=== PATIENT | male | born 1965 | race Caucasian/White ===

== ENCOUNTER 2020-07-03 12:16 | Emergency (ER) | payer BC, SELFPAY ==
[2020-07-03 12:25] VITALS: BP 164/87; PULSE 90; RESP 15; TEMP 36.5; O2SAT 98; BMI 29.9
--- NOTE | 2020-07-03 12:41 | XR_ITS ---
WS: [id number] Left ankle, 3 views, 07/03/2020 Clinical Data: trauma Comparison: None. Findings: No fractures or dislocations are seen. The ankle mortise is normal. The talus and calcaneus are unrem arkable. There is soft tissue swelling over the medial or lateral malleolus. Is a plantar spur. XR/XR ankle LT min 3V* [id number] Impression: Negative for fracture of the left ankle.
--- NOTE | 2020-07-03 12:42 | W.ED.LOWEXIN ---
HPI - Extremity Injury (Lower) General: Chief Complaint: Extremity Injury, Lower Stated Complaint: FALL-left ankle injury Time Seen by Provider: 07/03/20 12:35 Source: patient Mode of arrival: wheelchair Limitations: no limitations History of Present Illness: HPI Narrative: Patient is a 54-year-old male who presents to ED today for evaluation of a left ankle injury that he sustained after falling from a ladder. Patient states he did not fall to the ground and has no other complaints other than his left ankle pain. Patient tells me he was still able to ambulate on the ankle afterwards but heard a lot of crunching and popping . complaint: ankle injury Onset (ago): hour(s) Relieving factors: immobilization Exacerbating factors: weight bearing, movement and palpation Other symptoms: none Review of Systems Card: Denies: chest pain Resp: Denies: dyspnea Musc: Reports: joint pain (L ankle) and joint swelling (L ankle); Denies: neck pain, back pain, extremity pain or extremity swelling Neuro: Denies: headache(s), lack of coordination, difficulty walking, frequent falls or dizziness Physical Exam Const: COMMON NORMALS: no acute distress, average body habitus, patient oriented x3, no limitations, healthy appearing, alert and well nourished HENMT: COMMON NORMALS: normocephalic and atraumatic HEAD & SCALP: normocephalic and atraumatic Chest: COMMONS NORMALS: normal inspection of the chest and normal palpation of entire chest wall Back/Pelvis: COMMON NORMALS: thoracic and lumbar spine normal to inspection, no thoracic nor lumbar tenderness and thoraco-lumbar ROM normal Extremity: GENERAL: Yes normal exam except as noted OTHER: TTP and swelling noted to medial and lateral malleoli of L ankle; pt maintains fairly good ROM and doesn't report much pain at the moment; DP/PT pulses intact Neuro: COMMON NORMALS: patient oriented x3, no focal motor deficits and no sensory deficits noted SENSORIUM/ORIENTATION: Yes alert Skin: NARRATIVE SKIN EXAM: no ecchymosis, lacerations, or abrasions noted Course Vital Signs: Vital signs: Vital Signs Temperature 97.7 F 07/03/20 12:25 Pulse Rate 69 07/03/20 12:58 Respiratory Rate 20 H 07/03/20 12:56 Blood Pressure 138/80 07/03/20 12:56 Pulse Oximetry 96 07/03/20 12:56 MDM - Extremity Injury (Lower) Imaging Data^: L ankle XR: Radiologist's impression: [facility] [place] [address] XRay Report Signed Patient: Jorge L Liu Unit #: [id number] : 1965 Age/Sex: 54 / M ADM Date: 07/03/20 Loc: ER Room/Bed: Attending Dr: Ordering Provider/Ordering MD: Amee Fu Date of Service: 07/03/20 Procedure(s): XR ankle LT min 3V* [id number] Accession Number(s): [id number] Report Number: [id number] WS: [id number] Left ankle, 3 views, 07/03/2020 Clinical Data: trauma Comparison: None. Findings: No fractures or dislocations are seen. The ankle mortise is normal. The talus and calcaneus are unremarkable. There is soft tissue swelling over the medial or lateral malleolus. Is a plantar spur. XR/XR ankle LT min 3V* [id number] Impression: Negative for fracture of the left ankle. Dictated By: Dorothy Ny MD Signed By: Dorothy Ny MD Signed Date/Time: 07/03/20 1256 DD/ 1255 Discharge Plan Discharge Patient Disposition: Home Clinical Impression: Ankle sprain and strain Condition: Stable Discharge Orders: Discharge ED (Routine); Ordered 07/03/20 Ordered By: Amee Fu Patient Instructions: Ankle Sprain (ED), Ankle Stirrup Splint (ED), RICE Therapy (ED), Sprains - Ankle Activity Restrictions/Additional Instructions: As discussed ice and elevate the ankle as much as possible (refer to RICE handout). If you continue having severe pain past a week please contact your primary care provider for further evaluation and possible repeat imaging. 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
[2020-07-03 12:56] VITALS: BP 138/80; PULSE 79; RESP 20; O2SAT 96
[2020-07-03 12:58] VITALS: PULSE 69
[2020-07-03 13:30] VITALS: BP 101/83; PULSE 76; RESP 18; TEMP 37.2; O2SAT 96
== END 2020-07-03 13:48 | disposition home or self-care (01) ==
PROVIDERS: Emergency Provider Physician Assistant; PCP Nurse Practitioner Family
DX: S93.402A Sprain of unspecified ligament of left ankle, initial encounter (principal); S96.912A Strain of unspecified muscle and tendon at ankle and foot level, left foot, initial encounter; W11.XXXA Fall on and from ladder, initial encounter
CPT/HCPCS: 12345; 29105; 73610; 99281; 99283

== ENCOUNTER 2020-12-03 12:05 | Emergency (ER) | payer BC, SELFPAY ==
[2020-12-03 12:28] VITALS: BP 146/93; PULSE 87; RESP 16; TEMP 36.4; O2SAT 95; BMI 29.9
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
[2020-12-03 12:51] VITALS: BP 135/99; PULSE 78; RESP 16; O2SAT 98
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
[2020-12-03 13:37] VITALS: BP 133/101; PULSE 77; RESP 14; O2SAT 97
== END 2020-12-03 13:46 | disposition home or self-care (01) ==
PROVIDERS: Emergency Provider Physician Assistant; PCP Family Medicine
DX: S60.222A Contusion of left hand, initial encounter (principal); S80.12XA Contusion of left lower leg, initial encounter; V29.9XXA Motorcycle rider (driver) (passenger) injured in unspecified traffic accident, initial encounter
CPT/HCPCS: 73130; 73610; 99282

== ENCOUNTER 2021-01-15 15:45 | Outpatient (CLI) | payer SELFPAY ==
--- NOTE | 2021-01-15 15:57 | XR_ITS ---
WS: [id number] Right shoulder, 3 views, 01/15/2021 Clinical Data: SHOULDER PAIN, RIGHT Comparison: None. Findings: No fractures or dislocations are seen. The AC joint is normal. The adjacent right clavicle, right sca pula and ribs are normal. The soft tissues are unremarkable. XR/XR shoulder RT min 2V* [id number] Impression: Negative right shoulder.
== END 2021-01-15 15:46 | disposition home or self-care (01) ==
LOC: RAD 15:50
PROVIDERS: PCP Family Medicine; Visit Provider Family Medicine
DX: M25.511 Pain in right shoulder (principal)
CPT/HCPCS: 73030

== ENCOUNTER 2021-07-24 16:17 | Outpatient (CLI) | payer BC, SELFPAY ==
--- NOTE | 2021-07-24 16:48 | MR_ITS ---
WS: [id number] MRI RIGHT SHOULDER NONCONTRAST TECHNIQUE: Sagittal T2, coronal T1, T2 and proton density imaging. Axial gradient PDE imaging. CLINICAL INFORMATION: S46.911A - Strain of unspecified muscle, fascia and tendo... COMPARISON: None. FINDINGS: Advanced degenerative arthritis AC joint with moderate downsloping acromion. Slight subacromial spurr ing. Small subacromial/subdeltoid effusion. High-grade complete tear involving the supraspinatus with retraction to the level of the AC joint. Chronic thinning of the infraspinatus with partial-thicknes s high-grade tear. Small amount of tendon is intact dorsally. Chronic thinning of the subscapularis tendon with tendinopathy. Diminutive atrophic biceps tendon rem nant in the bicipital groove. This is likely chronically torn. Small joint effusion. Partial-thicknes s tear of the intra-articular biceps tendon with a small amount of associated fluid. Disruption of th e biceps labral anchor. Degenerative fraying of the glenoid labrum. Degenerative arthritis involving the glenohumeral joint. MR/MR shoulder RT wo con* [id number] IMPRESSION: 1. High-grade complete tear of the supraspinatus with retraction of the level of the AC joint. 2. High-grade partial-thickness tear of the infraspinatus with intact fibers d orsally. 3. Tendinopathy with chronic thinning of the subscapularis. 4. Partial thickness tear of the intra-articular biceps tendon with disruption of the biceps labral anchor which is not well visualized. 5. Tiny intra-articular biceps remnant within the bicipital groove likely due to chronic tear. 6. Small joint effusion. 7. Moderate to advanced degenerative arthritis AC joint with narrowing of the subacromial space.
== END 2021-07-24 16:18 | disposition home or self-care (01) ==
PROVIDERS: PCP Family Medicine; Visit Provider Orthopaedic Surgery
DX: S46.911A Strain of unspecified muscle, fascia and tendon at shoulder and upper arm level, right arm, initial encounter (principal); M75.121 Complete rotator cuff tear or rupture of right shoulder, not specified as traumatic; S46.211A Strain of muscle, fascia and tendon of other parts of biceps, right arm, initial encounter; X58.XXXA Exposure to other specified factors, initial encounter; M25.411 Effusion, right shoulder; M19.011 Primary osteoarthritis, right shoulder
CPT/HCPCS: 73221

== ENCOUNTER → 2021-08-22 00:01 | Outpatient (BNVA) | payer BC, SELFPAY | PROVIDERS: PCP Family Medicine; Visit Provider Orthopaedic Surgery | DX: Z20.822 Contact with and (suspected) exposure to COVID-19 (principal); Z01.812 Encounter for preprocedural laboratory examination | CPT/HCPCS: 87635 ==

== ENCOUNTER 2021-08-28 08:24 | Day surgery (SDC) | payer BC, SELFPAY ==
[2021-08-27 10:30] VITALS: BMI 29.9
[2021-08-28] VITALS (13 sets, daily range): BP systolic 103–142; BP diastolic 50–86; PULSE 64–129; RESP 14–18; TEMP 36.4–36.7; O2SAT 93–99
--- NOTE | 2021-08-28 08:38 | P.HPUD_ITS ---
Surgery/Procedure H&P Update DATE OF PROCEDURE: August 28, 2021 DATE H&P PERFORMED: 08/12/21 H&P UPDATE INFORMATION: I have reviewed H&P completed within last 30 days PREOP DIAGNOSIS: Rotator cuff tear/biceps tendon tear right shoulder PLANNED PROCEDURE: Operation Date: 08/28/21 10:25 Proposed Procedures p arthroscopic rotator cuff repair 45116/right rotator cuff repair M75.10 1(Right) - Davie Jackson MD s Shoulder Arthroscopy(Right) - Davie Jackson MD
[2021-08-28] MEDS: acetaminophen 500 mg Tablet 1000 MG PO (08:54)
[2021-08-28] MEDS: sodium chloride 0.9% 1,000 ML 30 ML IV (08:56)
[2021-08-28] MEDS: HYDROmorphone 1 mg/mL INJ 1 mL 0.5 MG IVP (09:10)
--- NOTE | 2021-08-28 09:12 | SUR.PREOP ---
Anesthesia performing block in room. Dilaudid given pre-procedure. Time out completed at bedside, block performed using ultrasound. Patient tolerated well.
--- NOTE | 2021-08-28 09:35 | ANES.PREANE2 ---
Pre-Anesthetic Assessment Height/Weight: Height 1.65 m Weight 81.647 kg Temp Pulse Resp BP Pulse Ox 98.1 F 75 17 139/85 96 08/28/21 08:34 08/28/21 08:34 08/28/21 09:10 08/28/21 08:34 08/28/21 09:10 Preop Diagnosis: Rotator cuff tear/biceps tendon tear right shoulder Operation Date: 08/28/21 10:25 Proposed Procedures p arthroscopic rotator cuff repair 70548/right rotator cuff repair M75.101(Right) - Davie Jackson MD s Shoulder Arthroscopy(Right) - Davie Jackson MD Familial anesthetic complications: None Was Beta Geoff taken within 24 hours: N/A Was Clonidine taken within 24 hours: N/A Last intake: Intake Last Liquid Date 08/27/21 Last Liquid Time 20:00 Last Solid Date 08/27/21 Last Solid Time 20:00 Social Tobacco (Chews) and No alcohol Exam alert, oriented x 3, clear to auscultation bilaterally and regular rate & rhythm Airway Submandibular: within normal limits Cervical ROM: within normal limits Mallampati: Class II Dentition: chipped and loose Comments: Comments: upper and lower teeth are loose Pulmonary Chronic Obstructive Pulmonary Disease Neuropsych Depression Anesthetic Plan ASA status: 2 Anesthesia: General and Regional (specify below) (right interscalene blk) Risk of > 500 ml blood loss (7ml/kg in children): No Medications/Allergies Home Medications Medication Instructions Recorded Confirmed Last Taken Type Aspir-81 81 mg PO DAILY 08/27/21 08/27/21 08/27/21 07:00 History paroxetine HCl 20 mg tablet 20 mg PO DAILY 08/27/21 08/27/21 08/27/21 07:00 History Allergies Allergy/AdvReac Type Severity Reaction Status Date / Time Penicillins Allergy ALGY-Hives Verified 08/28/21 08:35 Current Medications Generic Name Dose Route Start Last Admin Trade Name Freq PRN Reason Stop Dose Admin Hydromorphone HCl 0.5 mg 08/28/21 07:16 08/28/21 09:10 Hydromorphone 1 Mg/Ml Inj 1 Ml IVP 08/29/21 07:16 0.5 mg Q10M PRN Administration Pain level 7-10 PACU Phase I Sodium Chloride 1,000 mls @ 30 mls/hr 08/28/21 08:30 08/28/21 08:56 Sodium Chloride 0.9% IV 08/29/21 08:29 30 mls/hr .Q24H LATOYA Administration PFSH Anesthesia Social History Smoking and tobacco status: never smoked Data Anesthesia Cardiac Studies: No Data to Display Anesthesia Procedures Nerve Block Nerve Block 1: Main Anesthesia: general anesthesia Time Out Performed: Yes Consent: requested by attending/covering physician, from patient and risks and benefits reviewed Nerve block location: interscalene (right) Anesthesia monitors applied: pulse oximetry, EKG, BP cuff and oxygen Nerve block position: semi sitting Anesthetic Used: ropivicaine 0.5% Amount of anesthesia used (mL): 30 Ultrasound used to: recognize landmarks and visualize and ID brachial plexus Nerve Stimulator Used?: No Interscalene/Femoral BLK: 2 stimuplex 22 g needle used for position and inplane approach Injection: neg aspiration of heme Patient Tolerated Procedure: well Complications: none
[2021-08-28] MEDS: EPINEPHrine 1 mg/mL INJ 2 MG XX (10:33)
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
[2021-08-28] MEDS: oxyCODONE 5 mg IR Tab/Cap PO (12:48)
--- NOTE | 2021-08-28 19:22 | ANE.PACU2 ---
Inpatient post-anesthesia follow up: Airway intact: Yes Vital signs: Temperature 98.0 F Pulse Rate 88 Respiratory Rate 17 Blood Pressure 136/86 Pulse Oximetry 97 Oxygen Delivery Me thod Room Air Oxygen Flow Rate 6 Fraction of Inspir ed Oxygen Hydration adequate: Yes Nausea and vomiting: No Pain level: 2 Mental status: Baseline
== END 2021-08-28 12:53 | disposition home or self-care (01) ==
PROVIDERS: PCP Family Medicine; Visit Provider Orthopaedic Surgery
PROC: (CPT 29826; principal; 2021-08-28 10:25)
PROC: (CPT 29805; 2021-08-28 10:25)
DX: M75.101 Unspecified rotator cuff tear or rupture of right shoulder, not specified as traumatic (principal); S46.111A Strain of muscle, fascia and tendon of long head of biceps, right arm, initial encounter; X58.XXXA Exposure to other specified factors, initial encounter
CPT/HCPCS: 29826; 29827; 64415; 76942; C1713; J0171; J0690; J1170; J2795; J7030

== ENCOUNTER → 2021-12-23 09:15 | Outpatient (BNVA) | payer BC, SELFPAY | PROVIDERS: PCP Family Medicine; Visit Provider Podiatrist Foot & Ankle Surgery | DX: M79.672 Pain in left foot (principal); M79.671 Pain in right foot | CPT/HCPCS: 73630 ==

== ENCOUNTER 2022-02-18 11:52 | Outpatient (CLI) | payer BC, SELFPAY | END 2022-02-18 11:53 | disposition home or self-care (01) | LOC: SPT 11:53 | PROVIDERS: PCP Family Medicine; Visit Provider Podiatrist Foot & Ankle Surgery | DX: Z46.89 Encounter for fitting and adjustment of other specified devices (principal); M72.2 Plantar fascial fibromatosis | CPT/HCPCS: 97760; L3030 ==

== ENCOUNTER 2022-03-17 10:11 | Emergency (ER) | payer BC, SELFPAY ==
[2022-03-17 10:20] VITALS: BP 129/85; PULSE 109; RESP 16; TEMP 37.2; O2SAT 95; BMI 30.4
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
--- NOTE | 2022-03-17 10:59 | ED_ITS ---
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 He reports that he was wearing a hat. There is a female present with the patient who is concerned that the patient lost consciousness because he does not recall where his hat or his hotshot are. The patient does not believe he lost consciousness, but does state that he is unsure of where his supplies are. The female that is with him states that this is very typical for him. The patient is concerned about a laceration on his right side forehead. He reports that he is not up-to-date on his tetanus vaccination. Associated symptoms: Denies chills or fever(s) Review of Systems Const: Denies: fever(s) or chills Eyes: Denies: change in vision, blurry vision or blind spots Card: Denies: chest pain or palpitations Resp: Denies: dyspnea Skin/Breast: Reports: other (Laceration right side forehead) Neuro: Reports: headache(s) [facility] ED PFSH: Social History Smoking and tobacco status: never smoked Physical Exam Const: COMMON NORMALS: no acute distress, patient oriented x3 and alert Eye: COMMON NORMALS: Equal, round and reactive pupils present, EOMs intact bilaterally and conjunctivae normal CONJUNCTIVA: Yes conjunctivae normal PUPIL: Yes Equal, round and reactive pupils present Resp: COMMON NORMALS: normal respiratory effort Cardio: COMMON NORMALS: regular rate, regular rhythm, S1 normal heart sound present and S2 normal heart sound present RATE: regular rate RHYTHM: regular rhythm HEART SOUNDS: S1 normal heart sound present, S2 normal heart sound present and no murmurs Neuro: COMMON NORMALS: patient oriented x3, CN's II-XII intact bilaterally, moves all extremities, no focal motor deficits, no sensory deficits noted and gait normal SENSORIUM/ORIENTATION: Yes alert Skin: NARRATIVE SKIN EXAM: Right side forehead there is approximately a 3.5 cm laceration. Edges are clean and well approximated. Minimal bleeding at this time. No obvious foreign bodies appreciated. Procedures Laceration Right-sided forehead: Description: linear and contaminated (Extensive irrigation with normal saline) Depth: simple, single layer Local Anesthetic: lidocaine 1% Amount of anesthesia used (mL): 3 Skin layer closed with: other (Ethilon) Size (cm): 5-0 Number of sutures: 5 Course Vital Signs: Vital signs: Vital Signs Temperature 98.9 F 03/17/22 10:20 Pulse Rate 109 H 03/17/22 10:20 Respiratory Rate 16 03/17/22 10:20 Blood Pressure 129/85 03/17/22 10:20 Pulse Oximetry 95 03/17/22 10:20 Oxygen Delivery Me thod 03/17/22 10:20 MDM - Wound/Laceration Medical Decision Making 56-year-old male in today for head injury. 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 He presents with a laceration to his right side forehead. His significant other is very concerned that he had a loss of consciousness based on his typical behavior and the way that he does not remember some of the events. Patient denies loss of consciousness. Head CT is negative. Lidocaine 1% used as local anesthetic. The wound was cleansed and extensively irrigated with normal saline. No obvious foreign bodies are appreciated. Suture repair of the laceration was done and edges approximated well. Total of 6 of the 5-0 sutures. Advised patient and his of aftercare. Since patient had wiped the wound with a soiled rag at the time of injury I will go ahead and administer prophylactic antibiotic Keflex. Patient does have a history of allergy to penicillin however we got his mother on the phone and she denies that it was a significant allergy. She reports that once when he was a baby and he developed a little bit of rash and swelling to his skin. No breathing issues. We discussed the possible cross sensitivity between penicillin and cephalosporins. We discussed that his risk is significantly reduced given that he did not have an anaphylactic type reaction. Will cover patient outpatient with Keflex. Follow-up in 5 to 7 days with primary care provider to have sutures removed. Monitor closely for signs of infection. Return to the ER for any new or worsening symptoms including neurologic changes. Lab Data Radiology Impressions Head CT 03/17/22 10:52 IMPRESSION: 1. No evidence of intracranial hemorrhage or mass effect. 2. No acute intracranial findings. Discharge Plan Discharge Patient Disposition: Home Clinical Impression: Contusion of head, Laceration of head Condition: Stable Prescriptions: New cephalexin 500 mg capsule 500 mg PO BID 7 Days Qty: 14 0RF No Action (DME) Sole Supports See Rx Instructions .Route .MEDSUPPLY Qty: 1 0RF Rx Instructions: As directed Aspir-81 81 mg PO DAILY paroxetine HCl 20 mg tablet 20 mg PO DAILY oxycodone 5 mg tablet 5 mg PO Q4H PRN (Reason: pain) Qty: 40 0RF Discharge Orders: Discharge ED (Routine); Ordered 03/17/22 Ordered By: Claudia Andrew Referrals: Jesus Alberto Faith MD [Primary Care Provider] - Discharge Diet: Usual diet Discharge Activity: Resume usual activity Activity Restrictions/Additional Instructions: Your head CT was negative for any acute abnormalities. Monitor closely for the next 24 hours for any changes in vision, increased headache, increased pain, other neurologic symptoms. Keep sutures clean and dry. Follow-up in 5 to 7 days with your primary care provider to have sutures removed. Start antibiotic Keflex today. Take as directed. There is a potential for cross sensitivity since you have an allergy to penicillin however this is significantly reduced given that you did not have an anaphylaxis reaction to penicillin. Return to the ER as needed for any new or worsening symptoms, chest pain, shortness of breath, difficulty breathing. Coding Level of Care Code ED [employer] Specialist for Lynne Ramos Exam Detailed
[2022-03-17] MEDS: tetanus-dipt-pertussis 0.5 mL SDV IM (11:10)
== END 2022-03-17 12:18 | disposition home or self-care (01) ==
PROVIDERS: Emergency Provider Nurse Practitioner Family; PCP Family Medicine
DX: S01.81XA Laceration without foreign body of other part of head, initial encounter (principal); S00.93XA Contusion of unspecified part of head, initial encounter; W55.22XA Struck by cow, initial encounter; Z23 Encounter for immunization; Z79.82 Long term (current) use of aspirin
CPT/HCPCS: 12013; 70450; 90471; 90715; 99284

== ENCOUNTER 2023-05-31 21:42 | Emergency (ER) | payer OTHER, SELFPAY ==
--- NOTE | 2023-05-31 21:43 | XRR_ITS ---
PROCEDURE INFORMATION: Exam: XR Right Ankle Exam date and time: 05/31/2023 9:56 PM Age: 57 years old Clinical indication: Injury or trauma; Other: Dropped something on RT ankle; Crushing; Right TECHNIQUE: Imaging protocol: Radiologic exam of the right ankle. Views: 3 or more views. COMPARISON: CR (LOW EXM, ) 05/31/2023 9:55 PM FINDINGS: Bones/joints: Small calcified heel spur. Degenerative calcification between the distal tibia and fibula appears chronic. Soft tissues: Normal. XR/XR ankle RT min 3V* [id number] IMPRESSION: 1. Small calcified heel spur. 2. Degenerative calcification between the distal tibia and fibula appears chronic.
--- NOTE | 2023-05-31 21:43 | XRR_ITS ---
PROCEDURE INFORMATION: Exam: XR Right Foot Exam date and time: 05/31/2023 9:55 PM Age: 57 years old Clinical indication: Injury or trauma; Other: Dropped something on RT foot; Crushing; Right TECHNIQUE: Imaging protocol: Radiologic exam of the right foot. Views: 3 or more views. COMPARISON: No relevant prior studies available. FINDINGS: Bones/joints: Small calcified heel spur. Hallux valgus with a metatarsophalangeal joint angle of 23 degrees. Soft tissues: Normal. XR/XR foot RT min 3V* [id number] IMPRESSION: 1. Small calcified heel spur. 2. Hallux valgus with a metatarsophalangeal joint angle of 23 degrees.
[2023-05-31 21:45] VITALS: BP 150/89; PULSE 70; RESP 17; TEMP 37.7; O2SAT 100; BMI 30.7
--- NOTE | 2023-05-31 21:52 | ED_ITS ---
HPI - Extremity Problem General: Chief complaint: Extremity Injury, Lower Stated complaint: R foot injury Time Seen by Provider: 05/31/23 21:44 History of Present Illness: 57-year-old male states he was at work w hen a piece of metal dropped on his right foot causing him to have 9 out of 10 aching throbbing pain. He states that his foot has significant pain to the top of it it is slightly reddened and swollen in comparison to his left foot. Capillary refills less than 3 seconds he is able to flex extend invert and scott the foot. He states that attempting to put pressure on the foot makes the pain worse and nothing makes it better. Review of Systems General: Reports: 10 or more systems reviewed and unremarkable except in HPI and below Musc: Reports: extremity pain and extremity swelling PFSH ED PFSH: Social History Smoking and tobacco/nicotine status: never used tobacco/nicotine Physical Exam Narrative: EXAM NARRATIVE: Constitutional: the patient appears well nourished and of normal development. Vital signs as documented. No acute distress at present. Alert and oriented-to person, place, time and situation. Head, eyes, ears, nose, mouth, throat: Normocephalic, atraumatic. Pupils-equal, round, reactive to light. No scleral icterus. Normal-appearing external ears. Normal appearing nasal turbinates, no drainage. No obvious oral lesions, posterior oropharynx without erythema or exudates. Neck: Supple, trachea is midline, no lymphadenopathy, no jugular venous distension, thyromegaly, or carotid bruits. Carotid upstrokes are brisk bilaterally. Lungs: clear to auscultation to all lung gamez. Symmetrical rise and fall of chest, no obvious signs of increased work of breathing at present. Cardiac: Regular rate and rhythm, positive S1, S2. No murmurs, rubs or gallops that I can appreciate Abdomen: Soft, non-tender to palpation, normal active bowel sounds to all quadrants. No palpable masses, no organomegaly and abdominal bruits. Extremities: 2+ pulses in the upper extremities that are equal bilaterally, 2+ pulses in the lower extremities that are equal bilaterally. Non-edematous. Moves all extremities well, sensation to all extremities are noted. Dorsal surface of the right foot is tender to palpation. There is no obvious crepitus capillary refills less than 3 seconds. Skin: Warm, dry, intact. Course ED course: I reviewed the radiographic examination and determined the need for stabilization via Right orthopedic boot. There is no obvious fracture or dislocation as noted by the radiologist A Orthopedic walking boot was utilized. The Orthopedic boot was ordered and placed by the nursing staff, under the direct supervision of myself (ER Physician. The patient's neurovascular status was evaluated and was intact before and after the application of the Orthopedic walking boot. Capillary refill was less than 3 seconds before and after the application. The patient was splinted and the most appropriate anatomical and functional position at that time. Anticipatory guidance, return precautions and red flag precautions were provided to the patient and support person. The patient/support person was advised to contact the patient's primary care provider or Orthopedic provider to make a follow-up appointment for additional evaluation and treatment within the next 3-5 days. Vital Signs: Vital signs: Vital Signs Temperature 100 F H 05/31/23 23:58 Pulse Rate 70 05/31/23 23:58 Respiratory Rate 17 05/31/23 23:58 Blood Pressure 150/89 05/31/23 23:58 Pulse Oximetry 100 05/31/23 23:58 Oxygen Delivery Me thod Room Air 05/31/23 21:45 MDM - Extremity (Nontraumatic) Medical Decision Making Physical exam completed and documented, we will provide pain medication for pain relief as well as radiograph examination of the right foot and ankle and provide him orthopedic walking boot for support and pain relief. Medical Records I reviewed the patient's medical records. Lab Data Radiology Impressions Ankle X-Ray 05/31/23 21:43 IMPRESSION: 1. Small calcified heel spur. 2. Degenerative calcification between the distal tibia and fibula appears chronic. Foot X-Ray 05/31/23 21:43 IMPRESSION: 1. Small calcified heel spur. 2. Hallux valgus with a metatarsophalangeal joint angle of 23 degrees. All radiology interpretation(s) finalized by discharge Discharge Plan Discharge Patient Disposition: Home Clinical Impression: Sprain of right foot Qualifiers: Encounter type: initial encounter Qualified Code(s): S93.601A - Unspecified sprain of right foot, initial encounter Contusion of foot, right Qualifiers: Encounter type: initial encounter Qualified Code(s): S90.31XA - Contusion of right foot, initial encounter Condition: Stable Prescriptions: New hydrocodone-acetaminophen 7.5-325 mg tablet 1 tab PO Q8H Qty: 14 0RF No Action (DME) Sole Supports See Rx Instructions .Route .MEDSUPPLY Qty: 1 0RF Rx Instructions: As directed paroxetine HCl 20 mg tablet 20 mg PO DAILY Qty: 90 3RF Aspir-81 81 mg PO DAILY oxycodone 5 mg tablet 5 mg PO Q4H PRN (Reason: pain) Qty: 40 0RF Discharge Orders: Discharge ED (Routine); Ordered 05/31/23 Ordered By: Jose Elias Hinton Other Ambulatory Orders: DME: Miscellaneous (Order) Facility: [facility] - Location: Emergency Room Ordered By: Jose Elias Hinton Referrals: Jesus Alberto Faith MD [Primary Care Provider] - Discharge Diet: Advance as tolerated Discharge Activity: Resume usual activity Patient Instructions: Opioid Safety, Pain Management Activity Restrictions/Additional Instructions: Activity Restrictions/Additional Instructions: Thank you for choosing [facility] for your healthcare needs today. Please realize that you were seen in the Emergency Department and that we are providing you with an emergency medical screening exam and this may not be co mplete and all inclusive of all the testing and or medical work-up that you may need to determine your ailment or severity of your illness. It is very important that you follow-up as instructed with your Primary care provider or Specialist for additional evaluation and to discuss your medical treatment plan. You may return to the Emergency Department should you have concerns or if your condition changes or worsens in any way. Coding Level of Care Code ED [employer] for Lynne Ramos
[2023-05-31] MEDS: ondansetron 4 MG Tablet 8 MG PO (22:51)
[2023-05-31] MEDS: morphine 4 mg/mL SDV 1 mL IM (22:51)
[2023-05-31] MEDS: HYDROcodone-acetaminophen 10-325 mg Tablet 1 TAB PO (23:32)
[2023-05-31 23:58] VITALS: BP 150/89; PULSE 70; RESP 17; TEMP 37.7; O2SAT 100
== END 2023-05-31 23:59 | disposition home or self-care (01) ==
PROVIDERS: Emergency Provider Internal Medicine; PCP Family Medicine
DX: S93.601A Unspecified sprain of right foot, initial encounter (principal); S90.31XA Contusion of right foot, initial encounter; Z79.82 Long term (current) use of aspirin; W20.8XXA Other cause of strike by thrown, projected or falling object, initial encounter
CPT/HCPCS: 73610; 73630; 96372; 99284; J2270; Q0162

== ENCOUNTER → 2025-01-01 08:29 | Outpatient (BNVA) | payer BC, SELFPAY | PROVIDERS: PCP Family Medicine; Visit Provider Family Medicine | DX: Z00.00 Encounter for general adult medical examination without abnormal findings (principal); Z51.81 Encounter for therapeutic drug level monitoring; R35.0 Frequency of micturition | CPT/HCPCS: 80053; 80061; 84153; 85025 ==